=== PATIENT | female | born 1955 | race Caucasian/White ===

== ENCOUNTER → 2017-11-22 | Outpatient (CLI) | payer MEDICAID ==
[~2017-11-22] MED LIST: ACE325 PO; ALBU8.5H IH; ATOR10TA65 PO; BIS10S PR; CARV25TA77 PO; CARV6.2574 PO; CELE-1 PO; CEPT PO; DOXY-228 PO; DULO20CA16 PO; DUONEB INH; ENO40I SQ; FLU60SYR30 IM ONLY; FLUT1DIS27 IH; FLUT1DIS28 IH; FURO-47 PO; FURO20TA19 PO; GAB300 PO; IPRA3AMP21 IH; LISI5TAB25 PO; MIRT-18 PO; MOM PO; MONT10TA PO; NITR-105 PO; OXYGENHOME INH; PANT40TA13 PO; PER PO; POTA20TA94 PO; PRE10 PO; PREG50CA48 PO; PREG75CA60 PO; PROAIRPT INH; SPIR25TA76 PO; SULF1TAB24 PO; WARF7.5T27 PO; ZOL5 PO; [UNRECOGNIZED DRUG - CODE] PO
== END ==
LOC: LAB 10:44
PROVIDERS: ATTEND Internal Medicine
DX: R35.0 Frequency of micturition (principal); R82.79 Other abnormal findings on microbiological examination of urine
CPT/HCPCS: 81001; 87088

== ENCOUNTER → 2017-12-18 | Outpatient (CLI) | payer MEDICAID | LOC: LAB 09:58 | PROVIDERS: ATTEND Internal Medicine | DX: E78.00 Pure hypercholesterolemia, unspecified (principal); I10 Essential (primary) hypertension; E11.9 Type 2 diabetes mellitus without complications | CPT/HCPCS: 36415; 82040; 82247; 82310; 82374; 82435; 82465; 82565; 82947; 83036; 83718; 84075; 84132; 84155; 84295; 84450; 84460; 84478; 84520 ==

== ENCOUNTER → 2018-06-13 | Outpatient (CLI) | payer MEDICAID ==
[~2018-06-13] MED LIST changes: +FLU150 PO; +IPRA3AMP10 IH; -IPRA3AMP21 IH
== END ==
LOC: LAB 09:28
PROVIDERS: ATTEND Internal Medicine
DX: E78.00 Pure hypercholesterolemia, unspecified (principal); E11.9 Type 2 diabetes mellitus without complications; I10 Essential (primary) hypertension
CPT/HCPCS: 36415; 82040; 82247; 82310; 82374; 82435; 82465; 82565; 82947; 83036; 83718; 84075; 84132; 84155; 84295; 84450; 84460; 84478; 84520

== ENCOUNTER → 2018-12-10 | Outpatient (CLI) | payer MEDICAID ==
[~2018-12-10] MED LIST changes: +FLU60SYR36 IM; +LEVO750T44 PO
[2018-12-10 09:57] LABS: PLATELET COUNT, AUTOMATED 202 K/uL (150-450)
== END ==
LOC: LAB 09:35
PROVIDERS: ATTEND Emergency Medicine
DX: M85.80 Other specified disorders of bone density and structure, unspecified site (principal); E66.01 Morbid (severe) obesity due to excess calories; I50.9 Heart failure, unspecified; I10 Essential (primary) hypertension; E11.9 Type 2 diabetes mellitus without complications; I51.9 Heart disease, unspecified; R05 Cough
CPT/HCPCS: 82040; 82247; 82306; 82310; 82374; 82435; 82565; 82607; 82947; 83036; 83880; 84075; 84132; 84155; 84295; 84443; 84450; 84460; 84520; 85025; 86140